=== PATIENT | female | born 1965 | race Two or more races ===

== ENCOUNTER → 2019-08-21 | Day surgery (SDC) | payer BC ==
[~2019-08-21] MED LIST: BLOOD PRESSURE MED PO; FENTANYL CITRATE/PF 100MCG/2 ML INJ ONE; GLUCAGON FOR INJ 1 MG VIAL ONE; HYDROCHLOROTHIA25 MG PO; HYOSCYAMINE 0.125 MG TAB ONE; MIDAZOLAM HCL 2 MG/2 ML VIAL ONE; PROPOFOL IV EMULSION 10 MG/ML 20 ML VIAL ONE; PROPOFOL IV EMULSION 10 MG/ML 50 ML VIAL ONE; SIMETHICONE 40 MG/0.6 ML BTL ONE
--- OUTSIDE RECORDS SUMMARY | 2019-08-21 07:06 | XMS REPORT | Summary of Care ---
Author Author UMA Bauman, TAMIKA Nettles Unknown Address Unknown Phone Unavailable Care Team Providers Care [employer] In[employer] Name Role Phone Esther Ortiz Unavailable Unavailable UMA Bauman, TAMIKA Unavailable Unavailable UMA GERARD, TAMIKA KHAN Unavailable Unavailable Ramila GERARD, Johnna Unavailable Unavailable Tracie GERARD, Ava Unavailable Unavailable Unavailable Unavailable Functional Status Name Dates Details Functional status health issues are not documented Status: Name Dates Details Cognitive status health issues are not documented Status: Problems Name Dates Details Mid sternal chest pain (786.51, R07.89) Status: Active Pain, joint, shoulder (719.41, M25.519) Status: Active Ulcerative colitis (556.9, K51.90) Status: Active Migraine without status migrainosus, not intractable (346.90, G43.909) Status: Active Acute maxillary sinusitis (461.0, J01.00) Status: Active Acute frontal sinusitis (461.1, J01.10) Status: Active Dermatophytosis of nail (110.1, B35.1) Status: Active Bronchitis (490, J40) Status: Active Common migraine without aura (346.10, G43.009) Status: Active Contact dermatitis (692.9, L25.9) Status: Active Sciatica (724.3, M54.30) Status: Active Weight gain (783.1, R63.5) Status: Active Visit for screening mammogram (V76.12, Z12.31) Status: Active Palpitations (785.1, R00.2) Status: Active Chest pain (786.50, R07.9) Status: Active Non morbid obesity due to excess calories (278.00, E66.09) Status: Active Colon cancer screening (V76.51, Z12.11) Status: Active Hot flashes (782.62, R23.2) Status: Active Nausea (787.02, R11.0) Status: Active Gastritis (535.50, K29.70) Status: Active Abdominal pain, epigastric (789.06, R10.13) Status: Active Abdominal pain, RUQ (right upper quadrant) (789.01, R10.11) Status: Active Bloating (787.3, R14.0) Status: Active Chronic constipation (564.00, K59.09) Status: Active Colon polyp (211.3, K63.5) Status: Active Arthralgia (719.40, M25.50) Status: Active Essential hypertension, benign (401.1, I10) Status: Active Adult celiac disease (579.0, K90.0) Status: Active Alopecia areata (704.01, L63.9) Status: Active Lateral epicondylitis of right elbow (726.32, M77.11) Status: Active BRODERICK positive (795.79, R76.8) Status: Active Sjogrens syndrome (710.2, M35.00) Status: Active Raynaud phenomenon (443.0, I73.00) Status: Active Bilateral carpal tunnel syndrome (354.0, G56.03) Status: Active Fibromyalgia (729.1, M79.7) Status: Active Esophageal reflux (530.81, K21.9) Status: Active Medications Name Dates Details hydroCHLOROthiazide 12.5 MG Oral Tablet TAKE 1 TABLET BY MOUTH ONCE DAILY Quantity: 90 UMA Bauman, LOURICE * Start : 25-Feb-2019 Active Dexilant 60 MG Oral Capsule Delayed Release TAKE ONE CAPSULE BY MOUTH EVERY DAY * Quantity: 30 Refills: 0 RAINELSAJI Bauman, LOURICE * Start : 20-May-2017 Active Allergies and Adverse Reactions Name Dates Details Aspirin TABS (Allergy) Status: Active Past Medical History Name Dates Details History of Cervicalgia (723.1, M54.2) Status: Resolved History of Muscle spasm (728.85, M62.838) Status: Resolved Procedures Procedure Dates Details History of Hysterectomy Completed Immunization Name Dates Details Tdap (Boostrix) Lot #: [id number] on: 11-Jan-2015 Family History Name Dates Details Family history of Congenital Heart Disease Comments: Family History Status: Active Name Dates Details Family history of Essential Hypertension Status: Active Name Dates Details Family history of Hyperlipidemia Status: Active Social History Name Dates Details - Status: Name Dates Details Never smoker Vital Signs Date Test Result Details No Known Vitals to report Results Date Description Value Details Results not documented Plan of Care Name Dates Details Planned Observations Planned Goals not documented Interventions Provided Follow-ups/Referrals* Gastroenterology Referral; To Be Done: 06 Jul 2019 Instructions Name Dates Details Instructions not documented Encounters Appointment; TAMIKA EATON M.D. Encounter Diagnosis: Problem not documented On: 30-May-2018 11:40 Appointment; JOHNNA GUZMAN M.D. Encounter Diagnosis: Problem not documented On: 04-Jul-2018 9:40 Appointment; CAROLANN PEREIRA M.D. Encounter Diagnosis: Problem not documented On: 10-Oct-2018 11:00
[2019-08-21 09:33] VITALS: BP 130/74
--- NOTE | 2019-08-21 15:13 | Operative Report ---
DATE OF PROCEDURE: 08/21/2019 SURGEON: Gabino Monterroso MD PROCEDURE: Colonoscopy with polypectomy. INDICATIONS FOR COLONOSCOPY: Surveillance colonoscopy, personal history of colon polyps. MEDICATIONS: The patient was done under MAC, please see anesthesiologist's note. PROCEDURE IN DETAIL: With the patient in left lateral decubitus position, a flexible fiberoptic Olympus colonoscope was inserted into the rectum with ease and advanced all the way to the cecum. Mucosa overlying the cecum appeared to be within normal limits. A minute polyp was noted in the proximal ascending colon that was removed per cold snare polypectomy. The rest of the ascending, transverse, and descending grossly appeared to be within normal limits. A single diverticulum was noted in the sigmoid colon. Two minute polyps were hot biopsied from the rectum. The scope was then retroflexed into the distal rectum and small internal hemorrhoids were noted, none of which was actively bleeding. The scope was then straightened out, it was subsequently withdrawn, and the patient tolerated the procedure well. IMPRESSION: 1. Ascending colon polyp removed per cold snare polypectomy. 2. Diverticulosis, minimal. 3. Rectal polyps x2 hot biopsied. 4. Internal hemorrhoids, none actively bleeding. PLAN: Follow up histology. Initiate high-fiber, low-fat diet. Initiate high-fiber supplement. The patient might benefit from a followup colonoscopy in 3 to 5 years. Gabino Monterroso MD [facility] [place][id number] cc: Dr. Beau Deutsch
== END | disposition home or self-care (01) ==
LOC: OR 07:03
PROVIDERS: ATTEND Internal Medicine Gastroenterology
DX: Z09 Encounter for follow-up examination after completed treatment for conditions other than malignant neoplasm (principal); D12.2 Benign neoplasm of ascending colon; K62.1 Rectal polyp; K57.30 Diverticulosis of large intestine without perforation or abscess without bleeding; K64.8 Other hemorrhoids; I10 Essential (primary) hypertension; K21.9 Gastro-esophageal reflux disease without esophagitis
CPT/HCPCS: 45378; 45384; 45385; 93005; J1610; J2250; J3010